=== PATIENT | female | born 1990 | race Caucasian/White ===

== ENCOUNTER 2017-03-09 15:14 | Emergency (ER) | payer MEDICAID ==
[2017-03-09] MEDS: CYCLOBENZAPRINE 10 MG TAB PO (17:55)
[2017-03-09] MEDS: IBUPROFEN 800 MG TAB PO (17:55)
== END 2017-03-09 19:45 | disposition home or self-care (01) ==
LOC: FTE 15:14
DX: M62.838 Other muscle spasm (principal)
CPT/HCPCS: 73030; 73030-RT; 99283-25